=== PATIENT | female | born 1950 | race Caucasian/White ===

== ENCOUNTER 2018-03-29 10:22 | Emergency (ER) | payer MEDICARE, OTHER ==
[2018-03-29 10:33] VITALS: BP 149/90
--- NOTE | 2018-03-29 11:32 | UC ---
Complaint Female HPI - HPI Summary HPI Summary: 67 y/o female with no PMH, no medications presents with increased urinary urgency, ferquency, burning iwth urination, lower back pain. ever x 1 last night, 100.7. no chills. feeling well today, rare UTI's in past. recent travel to [place], was unable to seek care, symptoms x ~ 7-10 days - History Of Current Complaint Chief Complaint: UCGU Stated Complaint: PAIN WITH MICTURITION Time Seen by Provider: 03/29/18 11:16 Hx Obtained From: Patient ?: No Onset/Duration: Sudden Onset, Lasting Days Timing: Constant, Lasting Days Severity Initially: Mild Severity Currently: Moderate Pain Intensity: 5 Pain Scale Used: 0-10 Numeric - Allergies/Home Medications Allergies/Adverse Reactions: Allergies Allergy/AdvReac Type Severity Reaction Status Date / Time Penicillins Allergy Rash Verified 03/29/18 10:34 PMH/Surg Hx/FS Hx/Imm Hx Previously Healthy: Yes - Surgical History Surgical History: None - Social History Alcohol Use: None Substance Use Type: None Smoking Status (MU): Never Smoked Tobacco Review of Systems All Other Systems Reviewed And Are Negative: Yes Constitutional: Positive: Fever - 100.7 Genitourinary: Positive: Dysuria, Frequency, Urgency Is Patient Immunocompromised?: No Physical Exam Triage Information Reviewed: Yes Appearance: Well-Appearing, No Pain Distress, Well-Nourished Vital Signs: Initial Vital Signs Temp 96.5 F 03/29/18 10:29 Pulse 114 03/29/18 10:29 Resp 20 03/29/18 10:29 BP 149/90 03/29/18 10:29 Pulse Ox 100 03/29/18 10:29 Vital Signs Reviewed: Yes Eyes: Positive: Conjunctiva Clear Abdomen Description: Positive: Nontender, No Organomegaly, Soft. Negative: CVA Tenderness (R), CVA Tenderness (L) Skin Exam: Normal Complaint Female Dx - Course Course Of Treatment: UA + for UTI, pyridium, ABX, go to ER with increased symptoms - Differential Dx/Diagnosis Differential Diagnosis/HQI/PQRI: Appendicitis, Ovarian Cyst, Ureteral Stone, Urinary Tract Infection Provider Diagnoses: UTI, uncomplicated Discharge - Sign-Out/Discharge Documenting (check all that apply): Patient Departure All imaging exams completed and their final reports reviewed: No Studies - Discharge Plan Condition: Good Disposition: HOME Prescriptions: Phenazopyridine TAB* [Pyridium 100 mg TAB*] 100 mg PO BID #6 tab Sulfamethox/Trimethoprim DS* [Bactrim DS 800/160 TAB*] 1 tab PO BID #10 tab Patient Education Materials: Urinary Tract Infection in Women (DC) Referrals: Danial Miranda MD [Primary Care Provider] - Additional Instructions: - Increase fluid intake - antibiotics as prescribed - Pryidium for urinary symptoms - Go to ER with fever > 101, increased back pain, chills - Billing Disposition and Condition Condition: GOOD Disposition: Home
--- NOTE | 2018-03-31 18:44 | UC ---
- Progress Note Progress Note: 03/31/2018 Urine culture positive for E.Coli. Pt Rx Bactrim PO which is sensitive No change. Angelina Gaines PA-C Discharge - Sign-Out/Discharge Documenting (check all that apply): Patient Departure - D/C home All imaging exams completed and their final reports reviewed: No Studies - Discharge Plan Condition: Good Disposition: HOME Prescriptions: Phenazopyridine TAB* [Pyridium 100 mg TAB*] 100 mg PO BID #6 tab Sulfamethox/Trimethoprim DS* [Bactrim DS 800/160 TAB*] 1 tab PO BID #10 tab Patient Education Materials: Urinary Tract Infection in Women (DC) Referrals: Danial Miranda MD [Primary Care Provider] - Additional Instructions: - Increase fluid intake - antibiotics as prescribed - Pryidium for urinary symptoms - Go to ER with fever > 101, increased back pain, chills - Billing Disposition and Condition Condition: GOOD Disposition: Home
== END 2018-03-29 11:45 | disposition home or self-care (01) ==
LOC: UCEAST 10:22
DX: N39.0 Urinary tract infection, site not specified (principal); Z88.0 Allergy status to penicillin
CPT/HCPCS: 81003; 87077; 87086; 87186; 99212; G0463

== ENCOUNTER 2018-03-29 23:13 | Inpatient (IN) | payer MEDICARE, OTHER ==
[2018-03-30] MEDS ORDERED: NS 0.9% 1000 ML*IV.FLUID IV ONE (00:49)
[2018-03-30] MEDS ORDERED: Levofloxacin 750 MG IVPREMIX(* 750 MG/150 ML BAG IVPB ONE (00:50)
--- NOTE | 2018-03-30 00:59 | ED ---
GI/ HPI - HPI Summary HPI Summary: Pt is a 67 year old F presenting to the ED with a chief complaint of urogenital symptoms. She was dxed with a UTI, sx onset about 1wk ago. Pt reports back pain bilaterally described as throbbing as well as mild nausea. Pt denies chills until tonight, also denies vomiting. Urine is red due to pyridium, and states her temp was 100.7 yesterday. - History of Current Complaint Chief Complaint: EDUrogenitalProblems Time Seen by Provider: 03/30/18 00:09 Stated Complaint: FEVER/SHAKES Hx Obtained From: Patient Onset/Duration: Started Hours Ago, Still Present Timing: Constant Severity: Moderate Current Severity: Moderate Pain Intensity: 3 Location of Pain: Other - back bilateral Pain Characteristics: Other: - throbbing Associated Signs and Symptoms: Positive: Back Pain, Nausea, Dysuria, Chills, UTI Symptoms. Negative: Vomiting - Allergy/Home Medications Allergies/Adverse Reactions: Allergies Allergy/AdvReac Type Severity Reaction Status Date / Time Penicillins Allergy Rash Verified 03/29/18 23:34 PMH/Surg Hx/FS Hx/Imm Hx Previously Healthy: Yes Endocrine/Hematology History: Denies: Hx Diabetes Cardiovascular History: Denies: Hx Hypertension Musculoskeletal History: Denies: Hx Osteoporosis - Cancer History Hx Chemotherapy: No Hx Radiation Therapy: No Infectious Disease History: No Infectious Disease History: Reports: Traveled Outside the [place] in Last 30 Days - [place] - Family History Known Family History: Negative: Renal Disease - Social History Alcohol Use: Weekly Substance Use Type: Reports: None Smoking Status (MU): Never Smoked Tobacco Review of Systems Positive: Chills. Negative: Fever Positive: Nausea. Negative: Vomiting Positive: dysuria, frequency, urgency Positive: Myalgia - back pain All Other Systems Reviewed And Are Negative: Yes Physical Exam - Summary Physical Exam Summary: VITAL SIGNS: Reviewed. GENERAL: Patient is a well-developed and nourished female who is lying comfortable in the stretcher. Patient is not in any acute respiratory distress. HEAD AND FACE: No signs of trauma. No ecchymosis, hematomas or skull depressions. No sinus tenderness. EYES: PERRLA, EOMI x 2, No injected conjunctiva, no nystagmus. EARS: Hearing grossly intact. Ear canals and tympanic membranes are within normal limits. MOUTH: Oropharynx within normal limits. NECK: Supple, trachea is midline, no adenopathy, no JVD, no carotid bruit, no c- spine tenderness, neck with full ROM. CHEST: Symmetric, no tenderness at palpation LUNGS: Clear to auscultation bilaterally. No wheezing or crackles. CVS: Regular rate and rhythm, S1 and S2 present, no murmurs or gallops appreciated. ABDOMEN: Soft, No signs of distention. No rebound no guarding, and no masses palpated. Bowel sounds are normal. Right CVA tenderness. EXTREMITIES: FROM in all major joints, no edema, no cyanosis or clubbing. NEURO: Alert and oriented x 3. No acute neurological deficits. Speech is normal and follows commands. SKIN: Dry and warm Triage Information Reviewed: Yes Vital Signs On Initial Exam: Initial Vitals Temp Pulse Resp BP Pulse Ox 98.8 F 104 16 113/75 94 03/29/18 23:25 03/29/18 23:25 03/29/18 23:25 03/29/18 23:25 03/29/18 23:25 Vital Signs Reviewed: Yes Diagnostics - Vital Signs Vital Signs Temp Pulse Resp BP Pulse Ox 03/29/18 23:25 98.8 F 104 16 113/75 94 - Laboratory Result Diagrams: 04/01/18 06:58 04/01/18 06:58 Lab Statement: Any lab studies that have been ordered have been reviewed, and results considered in the medical decision making process. - CT ABD/PELV CT CT Interpretation Completed By: Radiologist Summary of CT Findings: There is mild right hydronephrosis and right hydroureter with right perinephric fat stranding suspicious for residual obstructive arthropathy but no visible obstructing calculus. Cannot exclude a recently passed calculus that is no longer present. ED physician has reviewed this report. GIGU Course/Dx - Course Course Of Treatment: Pt is a 67 y/o F presenting to the ED with UTI sx onset about 1 wk ago. Pt states she has chills and her instructions from urgent care said to come to the ED with any chills. Pt reports back pain and mild nausea. Pt denies vomiting. - Diagnoses Provider Diagnoses: UTI (urinary tract infection) Discharge - Sign-Out/Discharge Documenting (check all that apply): Patient Departure - Discharge Plan Condition: Stable Disposition: HOME - Billing Disposition and Condition Condition: STABLE Disposition: Home - Attestation Statements Document Initiated by Dahianaibe: Yes Documenting Scribe: Isamar Gates Provider For Whom Alvino is Documenting (Include Credential): Thomas Gallardo MD. Scribe Attestation: IIsamar, scribed for Thomas Gallardo MD. on 04/10/18 at 0611. Scribe Documentation Reviewed: Yes Provider Attestation: The documentation as recorded by the dahianaibe, Isamar Gates accurately reflects the service I personally performed and the decisions made by me, Thomas Gallardo MD. Consult Consult: [phone] - Paged the hospitalist. [phone] - Spoke with hospitalist about the pt's condition for admission later in the morning. Pt will be admitted.
[2018-03-30 01:20] LABS: ABS Basophils 0 10^3/ul (0-0.2); ABS Eosinophils 0 10^3/ul (0-0.6); ABS Lymphocytes 0.4 10^3/ul (1.0-4.8); ABS Monocytes 0.3 10^3/ul (0-0.8); ABS Neutrophils 6.5 10^3/ul (1.5-7.7); ABS Nucleated RBC 0 10^3/ul; Eosinophil % 0.2 % (0-6); Hematocrit 35 % (35-47); Hemoglobin 11.5 g/dl (12.0-16.0); Lymphocyte % 5.3 % (25-47); Mean Corpuscular HGB Conc 33 g/dl (31-36); Mean Corpuscular Hemoglobin 28 pg (27-31); Mean Corpuscular Volume 84 fL (80-97); Mean Platelet Volume 7.8 fL (7.4-10.4); Nucleated Red Blood Cells % 0; Platelet Count 247 10^3/ul (150-450); Red Blood Count 4.18 10^6/ul (4.00-5.40); Red Cell Distribution Width 18 % (10.5-15); White Blood Count 7.2 10^3/ul (3.5-10.8)
[2018-03-30 01:36] LABS: EGFR Non-African American 44.4 (>60)
[2018-03-30] MEDS ORDERED: Potassium Chloride LIQUID* 20 MEQ PACKET PO ONE (01:49)
[2018-03-30 02:26] LABS: Urine Appearance Cloudy; Urine Blood 1+ (Negative); Urine Color Amber; Urine Ketones Negative (Negative); Urine Protein 2+(100 mg/dL) (Negative); Urine Red Blood Cell 2+(6-10/hpf) (Absent); Urine Specific Gravity 1.019 (1.010-1.030); Urine Urobilinogen Positive (Negative); Urine White Blood Cell 3+(>20/hpf) (Absent)
[2018-03-30] MEDS ORDERED: Ondansetron INJ* 2 MG/ML VIAL IV PRN ×2 (04:40→04:45)
[2018-03-30] MEDS ORDERED: Potassium Chlor TAB* 20 MEQ TAB.ER PO ONE (04:43)
[2018-03-30] MEDS ORDERED: Ketorolac INJ* 30 MG/ML 1 ML VIAL IV PUSH PRN (05:51)
[2018-03-30] MEDS ORDERED: Morphine VIAL* 4 MG/ML VIAL (1 ml vial) IV SCH (06:00)
--- NOTE | 2018-03-30 06:10 | ADMNOTE ---
Subjective Date of Service: 03/30/18 Interval History: code status full this is an admission h/p hpi 67 yr old wf with no sig phx presented to er with chills sweats r flank pain for 3 days. pt felt that she might have uti since 03/24 when she was on vacation in [place]---> did not get any abx except drinking a lot of crainberry juice. she came back and had to go to [facility] for business and never got this check out. pt had intermittant r flank throbbing pain for the past three days, 4/10 decreased with tylenol but nothing makes it worse. went to urgent this am and was d/cd with bactrim ---> started to have chills sweats still this afternoon ---> came in fo reval initial wbc wnl but ct of abd/pelvis showed mild r hydroureterer/ hydronephrosis with fat stranding. got levauqin form er phx depression pshx none social hx no cig two glasses of wine on weekends only no ivda fhx denied any hn/dm/cva/cad Review of Systems - Measurements Intake and Output: Intake and Output Last 24 Hours 03/27/18 03/28/18 03/29/18 03/30/18 06:59 06:59 06:59 06:59 Weight 190 lb - Review of Systems General Comments: pertinent as per hpi Objective Active Medications: Acetaminophen (Tylenol Tab*) 650 mg PO Q4H PRN PRN Reason: FEVER/PAIN Sodium Chloride (Ns 0.9% 1000 Ml*) 1,000 mls @ 125 mls/hr IV PER RATE MICKIE Levofloxacin/Dextrose (Levaquin 750 Mg Ivpremix(*)) 750 mg in 150 mls @ 100 mls /hr IVPB Q24H MICKIE Ketorolac Tromethamine (Toradol Inj*) 30 mg IV PUSH Q6H PRN PRN Reason: PAIN Morphine Sulfate (Morphine Inj ((Syringe))*) 1 mg IV Q4HR MICKIE Ondansetron HCl (Zofran Inj*) 4 mg IV Q4H PRN PRN Reason: NAUSEA/VOMITING Ondansetron HCl (Zofran Inj*) 4 mg IV Q6H PRN PRN Reason: NAUSEA Senna (Senokot Tab*) 1 tab PO BID MICKIE Sertraline HCl (Zoloft*) 100 mg PO DAILY [facility] Vital Signs - 8 hr 03/29/18 23:25 Temperature 98.8 F Pulse Rate 104 Respiratory 16 Rate Blood Pressure 113/75 (mmHg) O2 Sat by Pulse 94 Oximetry Oxygen Devices in Use Now: None Appearance: nad Eyes: No Scleral Icterus, PERRLA Ears/Nose/Mouth/Throat: NL Teeth, Lips, Gums, Clear Oropharnyx, Mucous Membranes Moist Neck: NL Appearance and Movements; NL JVP, Trachea Midline, No Thyroid Enlargement, Masses Respiratory: Symmetrical Chest Expansion and Respiratory Effort, Clear to Auscultation Cardiovascular: NL Sounds; No Murmurs; No JVD, RRR Abdominal: NL Sounds; No Tenderness; No Distention, - - + r cva tenderness Extremities: No Edema, No Clubbing, Cyanosis Skin: No Rash or Ulcers, No Nodules or Sclerosis Neurological: Alert and Oriented x 3, NL Sensation, NL Gait, NL Muscle Strength and Tone Result Diagrams: 03/30/18 06:16 03/30/18 06:16 Assess/Plan/Problems-Billing Assessment: this is a 67 yr old wf with no sig phx presented for worsening r flank pain + fever to 100.7 chills, sweating for three days. she had uti symptoms since 03/24 but did not seek medical attention until today to urgent ---> went home with bactrim but started to have chills despite of abx ct showed r mild hydroureter/ hydronephrosis but no stone. pt got levaquin from er - Patient Problems (1) Hydroureter, right Current Visit: Yes Status: Acute Code(s): N13.4 - HYDROURETER SNOMED Code( s): 64694316 Comment: yisel called in for this am npo for now while waiting gu eval (2) Hydronephrosis Current Visit: Yes Status: Acute Code(s): N13.30 - UNSPECIFIED HYDRONEPHROSIS SNOMED Code(s): 81619647 Comment: yisel eval in am npo for now (3) UTI (urinary tract infection) Current Visit: Yes Status: Acute Comment: levaquin while waiting for urine cx (4) Flank pain Current Visit: Yes Status: Acute Code(s): R10.9 - UNSPECIFIED ABDOMINAL PAIN SNOMED Code(s): 976553491 Comment: very mild pain toradol prn for mild to mod morphine 1 mg prn for severe pain (5) Depression Current Visit: Yes Status: Acute Code(s): F32.9 - MAJOR DEPRESSIVE DISORDER , SINGLE EPISODE, UNSPECIFIED SNOMED Code(s): 77898694 Comment: stable continue current mgt
[2018-03-30] MEDS: NS 0.9% 1000 ML* 1,000 ML IV SCH ×3 (06:24→22:32)
[2018-03-30] MEDS: Sertraline* 100 MG TAB PO SCH (07:51)
[2018-03-30] MEDS: Senna TAB PO SCH ×2 (07:51→20:53)
[2018-03-30 07:59] LABS: ABS Basophils 0 10^3/ul (0-0.2); ABS Eosinophils 0 10^3/ul (0-0.6); ABS Lymphocytes 0.7 10^3/ul (1.0-4.8); ABS Monocytes 0.4 10^3/ul (0-0.8); ABS Neutrophils 7.6 10^3/ul (1.5-7.7); ABS Nucleated RBC 0 10^3/ul; Eosinophil % 0 % (0-6); Hematocrit 35 % (35-47); Hemoglobin 11.5 g/dl (12.0-16.0); Lymphocyte % 8.2 % (25-47); Mean Corpuscular HGB Conc 33 g/dl (31-36); Mean Corpuscular Hemoglobin 28 pg (27-31); Mean Corpuscular Volume 85 fL (80-97); Mean Platelet Volume 8.2 fL (7.4-10.4); Nucleated Red Blood Cells % 0.1; Platelet Count 256 10^3/ul (150-450); Red Blood Count 4.14 10^6/ul (4.00-5.40); Red Cell Distribution Width 18 % (10.5-15); White Blood Count 8.8 10^3/ul (3.5-10.8)
[2018-03-30] MEDS ORDERED: Morphine INJ* 2 MG/ML 1 ML SYRINGE (TWO MG - NEW SYRINGE VERSION) IV PRN (07:59)
[2018-03-30 08:09] LABS: EGFR Non-African American 57.3 (>60)
[2018-03-30] MEDS: cefTRIAXone(*) 1 GM in NS 0.9% 50 ML* 50 ML IVPB SCH (08:10)
[2018-03-30] MEDS ORDERED: Pneumococcal *Vac Polyvalent 0.5 ML VIAL IM ONE (09:00)
[2018-03-30] MEDS ORDERED: Gentamicin ADULT per pharmacy 1 NOTE MISC FOLLOW UP PRN (12:41)
[2018-03-30] MEDS ORDERED: Gentamicin ADULT (*) 160 MG in NS 0.9% 100 ML* 100 ML IVPB ONE (13:00)
--- NOTE | 2018-03-30 13:02 | PN ---
Hospitalist Progress Note Date of Service: 03/30/18 HOSPITALIST ADDENDUM Mrs Meyer is a 67yo F with [facility] who presented to ED with c/o right flank pain and chills, found to have pyelonephritis. CT showed right perinephric stranding, with mild hydronephrosis and hydroureter. Urology consult requested - recommended adding gentamycin as she's spiking fevers and to repeat US in AM. Continue IVF, antibiotics, and monitor.
[2018-03-30] MEDS: Acetaminophen TAB* 325 MG PO PRN ×2 (15:02→22:27)
[2018-03-30] MEDS ORDERED: Melatonin 3 MG TAB PO PRN (15:43)
--- NOTE | 2018-03-30 20:43 | CONS ---
CC: Dr. Mackenzie Parsons; Dr. Danial Miranda MD * UROLOGY CONSULTATION: DATE OF CONSULT: 03/30/18 REQUESTING PHYSICIAN: Dr. Mackenzie Prasons. DIAGNOSES: 1. Right flank pain. 2. Right hydronephrosis. 3. Probable right pyelonephritis. HISTORY OF PRESENT ILLNESS: Elisa Meyer is a 67-year-old lady who was admitted with a four to five day history of increasing urinary frequency and dysuria. This has been going on for several days and progressively getting worse. She denies any fever or chills. Over the last few days, she has started having some increasing flank pain mostly on the right side, but also slightly on the left side. She denies any gross hematuria. There is no prior history of urolithiasis. She does not have any history of recurrent urinary tract infections. There is no history of diabetes mellitus or an other major systemic illness. MEDICATIONS ON ADMISSION: Zoloft 100 mg daily. ALLERGIES: PENICILLIN (not sure of reaction) PHYSICAL EXAM: Reveals a pleasant, healthy-appearing, middle-aged lady. Blood pressure is 152/78, the latest temperature at 11:18 was 102.4, oxygen saturation is 95% on room air, heart rate 85 per minute and regular. Cardiovascular Exam: Regular rate and rhythm. S1 and S2. Lungs are clear bilaterally. Abdomen is soft without any palpable masses. There is no evidence of distended bladder. There is mild right flank tenderness. DIAGNOSTIC STUDIES/LAB DATA: Review of labs reveals a white count of 8.8, hemoglobin and hematocrit of 11.5 and 35 with a platelet count of 256. Review of chemistry reveals a BUN and creatinine of 20 and 0.97 with a glucose of 122. Urinalysis showed 6 to 10 red cells per high power field, more than 20 white blood cells per high power field and 1+ bacteria. Urine culture is pending at the time of this dictation. She had a CT scan done on admission, which revealed mild right hydronephrosis and hydroureter with no evidence of any obstructing calculus noted. IMPRESSION: My initial recommendation had been to suggest an ultrasound in 24 hours to see for resolution of the hydronephrosis in case it was due a recently passed calculus, however, she had an ultrasound done about an hour prior to my evaluating her and this shows persistent mild right hydronephrosis, although right ureteral jet is definitely noted. I reviewed the imaging studies personally and discussed the situation in detail with Ms. Meyer. All of this could be explained by pyelonephritis and I also explained the possibility of possibly having passed a stone in the last day or two leading to persistent residual hydronephrosis. The clinical finding certainly is consistent with an inflammatory process, although with persistent hydronephrosis, it would be important to rule out other noninflammatory causes also and depending on clinical course, CT urogram may be appropriate if she continues to have flank pain and persistent hydronephrosis. I also discussed with her the possibility of requiring an endoscopic procedure consisting of cystoscopy and right retrograde pyelogram, possible urethroscopy and stent insertion. At this point, my recommendation would be continue intravenous antibiotics, intravenous hydration and as long as she is clinically stable to repeat an ultrasound in the morning again looking for resolution of the right hydronephrosis and for absence or presence of right ureteral jet. [id number]/[facility] #: [id number] MTDAnni
[2018-03-31] MEDS ORDERED: Zolpidem TAB* 5 MG PO ONE (00:24)
[2018-03-31] MEDS ORDERED: Levofloxacin 750 MG IVPREMIX(* 750 MG/150 ML BAG IVPB SCH (05:00)
[2018-03-31] MEDS ORDERED: Gentamicin ADULT (*) 120 MG in NS 0.9% 100 ML* 100 ML IVPB SCH (06:00)
[2018-03-31] MEDS: NS 0.9% 1000 ML* 1,000 ML IV SCH (07:11)
[2018-03-31] MEDS: Senna TAB PO SCH ×2 (07:17→22:03)
[2018-03-31] MEDS: Sertraline* 100 MG TAB PO SCH (07:17)
[2018-03-31 07:26] LABS: EGFR Non-African American 82.1 (>60)
[2018-03-31 07:50] LABS: Gentamicin Peak < 0.4 mcg/mL
[2018-03-31] MEDS: cefTRIAXone(*) 1 GM in NS 0.9% 50 ML* 50 ML IVPB SCH (07:51)
[2018-03-31 08:16] LABS: ABS Basophils 0 10^3/ul (0-0.2); ABS Eosinophils 0 10^3/ul (0-0.6); ABS Lymphocytes 0.8 10^3/ul (1.0-4.8); ABS Monocytes 0.9 10^3/ul (0-0.8); ABS Neutrophils 3.7 10^3/ul (1.5-7.7); ABS Nucleated RBC 0 10^3/ul; Eosinophil % 0.3 % (0-6); Hematocrit 33 % (35-47); Lymphocyte % 15.3 % (25-47); Mean Corpuscular HGB Conc 33 g/dl (31-36); Mean Corpuscular Hemoglobin 28 pg (27-31); Mean Corpuscular Volume 84 fL (80-97); Mean Platelet Volume 7.7 fL (7.4-10.4); Nucleated Red Blood Cells % 0.1; Platelet Count 221 10^3/ul (150-450); Red Blood Count 3.96 10^6/ul (4.00-5.40); Red Cell Distribution Width 18 % (10.5-15); White Blood Count 5.5 10^3/ul (3.5-10.8)
--- NOTE | 2018-03-31 11:11 | PN ---
Subjective Date of Service: 03/31/18 Interval History: HOSPITALIST PROGRESS NOTE Patient seen and examined at bedside. Care reviewed and d/w Zohreh Cárdenas RN. She feels improved this AM. Right flank pain is much improved and dysuria is minimal. Denies N/V, actually she's hungry and asking for food. Family History: Unchanged from Admission Social History: Unchanged from Admission Past Medical History: Unchanged from Admission Objective Active Medications: Acetaminophen (Tylenol Tab*) 650 mg PO Q4H PRN PRN Reason: FEVER/PAIN Last Admin: 03/30/18 22:27 Dose: 650 mg Ceftriaxone Sodium 1 gm/ (Sodium Chloride) 50 mls @ 200 mls/hr IVPB Q24H [facility] Last Admin: 03/31/18 07:51 Dose: 200 mls/hr Ketorolac Tromethamine (Toradol Inj*) 30 mg IV PUSH Q6H PRN PRN Reason: PAIN Melatonin (Melatonin) 3 mg PO BEDTIME PRN; Protocol PRN Reason: SLEEP Last Admin: 03/30/18 21:00 Dose: 3 mg Morphine Sulfate (Morphine Inj ((Syringe))*) 1 mg IV Q4HR PRN PRN Reason: PAIN Ondansetron HCl (Zofran Inj*) 4 mg IV Q6H PRN PRN Reason: NAUSEA Senna (Senokot Tab*) 1 tab PO BID [facility] Last Admin: 03/31/18 07:17 Dose: Not Given Sertraline HCl (Zoloft*) 100 mg PO DAILY [facility] Last Admin: 03/31/18 07:17 Dose: Not Given Vital Signs - 8 hr 03/31/18 03/31/18 03/31/18 05:51 07:07 07:19 Temperature 100.4 F 99.0 F Pulse Rate 77 72 Respiratory 17 16 16 Rate Blood Pressure 141/66 138/72 (mmHg) O2 Sat by Pulse 98 Oximetry 03/31/18 03/31/18 10:37 10:47 Temperature 99.8 F Pulse Rate 78 Respiratory 14 16 Rate Blood Pressure 165/72 148/72 (mmHg) O2 Sat by Pulse 97 Oximetry Oxygen Devices in Use Now: None Appearance: Pleasant lady lying in bed in NAD. Eyes: No Scleral Icterus Ears/Nose/Mouth/Throat: Mucous Membranes Moist Neck: Trachea Midline Respiratory: Symmetrical Chest Expansion and Respiratory Effort, Clear to Auscultation Cardiovascular: NL Sounds; No Murmurs; No JVD, RRR Abdominal: NL Sounds; No Tenderness; No Distention Neurological: Alert and Oriented x 3, NL Muscle Strength and Tone Result Diagrams: 03/31/18 08:02 03/31/18 06:39 Microbiology and Other Data: Microbiology 03/30/18 01:02 Aerobic Blood Culture - Preliminary Blood Venous No Growth Day 1 Anaerobic Blood Culture - Preliminary Escherichia Coli 03/30/18 01:02 Aerobic Blood Culture - Preliminary Blood Venous Anaerobic Blood Culture - Preliminary No Growth Day 1 Assess/Plan/Problems-Billing Assessment: Mrs Meyer is a 67 yo F with no significant PMH who presented to ED with c/o right flank pain and fever, found to have pyelonephritis. - Patient Problems (1) Sepsis Comment: - Presentation compatible with sepsis with fever and tachycardia. - Source is pyelonephritis. (2) Pyelonephritis Comment: - Improving. - Blood cultures showing gram negative septicemia - ID consult requested. - F/u renal ultrasound shows resolution of hydronephrosis/hydroureter and ureteral jet is present - d/w Urology - cystoscopy and stent not indicated. - Follow culture results. - Continue Ceftriaxone and gentamycin. (3) SHARIF (acute kidney injury) Comment: - Likely pre-renal in the setting of dehydration - resolved. (4) DVT prophylaxis Comment: - SQ heparin. (5) Depression Comment: - Continue Sertraline. (6) Full code status Status and Disposition: Inpatient for management of pyelonephritis.
--- NOTE | 2018-03-31 12:14 | CONS ---
DATE OF CONSULTATION: 03/31/2018. REQUESTING PHYSICIAN: Dr. Parsons. CONSULTING SERVICE: Infectious Disease. REASON FOR CONSULTATION: Pyelonephritis. IMPRESSION: 1. Right-sided pyelonephritis with resulting hydronephrosis and probably a past ureteral stone, due to E. coli; there is E. coli in one of four blood cultures bottles as well. 2. PENICILLIN ALLERGY, unknown reaction, tolerating cephalosporins well. 3. Obesity. 4. Depression. RECOMMENDATIONS: Continue Ceftriaxone, will stop Gentamicin. Plan on another at least 24 hours of IV antibiotics and if she continues to defervesce, then will switch to oral therapy once we have susceptibility data back, to complete a ten day course. HISTORY OF PRESENT ILLNESS: This 67-year-old woman who had about two or three weeks of worsening dysuria and right flank pain that developed while she was traveling in the and then while on a trip to [facility]. On the way back , she had very severe right flank pain, was seen at [facility] over the weekend, prescribed Bactrim, but developed rigors and high fever, so she came to the emergency room. One of four blood culture bottles ended up being positive for E. coli. Her initial C-reactive protein was 250. Urinalysis showed blood, nitrates, leukocyte esterase. CT scan showed mild right-sided hydronephrosis without a stone. She was seen by Dr. Grullon. Follow-up ultrasound showed resolution of the hydronephrosis. She had a low grade fever of 38 this morning and 39.3 overnight. She does not notice any chills or sweats this morning. Her appetite is okay. Her right flank pain is much improved. She has not has a urinary tract infection in the last couple of years. PAST MEDICAL HISTORY: Depression, obesity. MEDICATIONS: Gentamicin, Ceftriaxone, potassium, Senna, Sertaline. ALLERGIES: PENICILLIN, unknown reaction as a child. FAMILY HISTORY: No recurrent infections. 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 She has traveled to the . REVIEW OF SYSTEMS: All negative except as noted above in the history of present illness. PHYSICAL EXAM: General: She is awake and not in distress. Vital Signs: Temperature 37, heart rate 70, respiratory rate 16, blood pressure 140/72, oxygen saturation 98 percent on room air. Neurologic: She is oriented times three, follows all commands. HEENT: There is no conjunctival hemorrhage. Oropharynx without lesions. Neck: Supple without mass. Heart: Regular rate and rhythm without murmurs, rubs or gallops. Lungs: Clear to auscultation bilaterally. Abdomen: Soft, nontender, nondistended. There is right flank tenderness to palpation. There are bowel sounds presents. Skin: There is no rash or splinter hemorrhages. Musculoskeletal: There is no spine tenderness to palpable. LABORATORY DATA: White blood cell count 5, hemoglobin 11, platelets 221, creatinine 0.7. Please see impressions and recommendations as outlined above. Thank you for asking me to see Ms. Meyer in consultation. [id number]/[facility] #: [id number] CHASITY
[2018-03-31] MEDS: Heparin VIAL(*) 5000 UNITS/ML VIAL (FIVE THOUSAND) SUBCUT SCH ×2 (12:38→22:01)
[2018-03-31] MEDS: Acetaminophen TAB* 325 MG PO PRN (16:24)
[2018-03-31] MEDS ORDERED: Zolpidem TAB* 5 MG PO PRN (20:09)
[2018-04-01] MEDS ORDERED: Gentamicin Trough Level 1 NOTE MISC FOLLOW UP SCH (05:30)
[2018-04-01] MEDS: Heparin VIAL(*) 5000 UNITS/ML VIAL (FIVE THOUSAND) SUBCUT SCH ×3 (06:00→21:12)
[2018-04-01 07:24] LABS: ABS Basophils 0 10^3/ul (0-0.2); ABS Eosinophils 0 10^3/ul (0-0.6); ABS Lymphocytes 1.2 10^3/ul (1.0-4.8); ABS Monocytes 0.7 10^3/ul (0-0.8); ABS Neutrophils 2.5 10^3/ul (1.5-7.7); ABS Nucleated RBC 0 10^3/ul; Eosinophil % 0.8 % (0-6); Hematocrit 35 % (35-47); Hemoglobin 11.9 g/dl (12.0-16.0); Lymphocyte % 27.7 % (25-47); Mean Corpuscular HGB Conc 34 g/dl (31-36); Mean Corpuscular Hemoglobin 28 pg (27-31); Mean Corpuscular Volume 83 fL (80-97); Mean Platelet Volume 7.9 fL (7.4-10.4); Nucleated Red Blood Cells % 0.1; Platelet Count 263 10^3/ul (150-450); Red Cell Distribution Width 18 % (10.5-15); White Blood Count 4.4 10^3/ul (3.5-10.8)
[2018-04-01] MEDS ORDERED: Gentamicin PEAK LEVEL* 1 NOTE MISC FOLLOW UP SCH (07:30)
[2018-04-01 07:40] LABS: EGFR Non-African American 84.9 (>60)
[2018-04-01 07:41] LABS: EGFR Non-African American 83.5 (>60)
[2018-04-01] MEDS: cefTRIAXone(*) 1 GM in NS 0.9% 50 ML* 50 ML IVPB SCH (07:48)
[2018-04-01] MEDS: Senna TAB PO SCH ×2 (07:48→21:12)
[2018-04-01] MEDS: Sertraline* 100 MG TAB PO SCH (07:48)
--- NOTE | 2018-04-01 11:42 | PN ---
Subjective Date of Service: 04/01/18 Interval History: Patient examined at bedside. Plan reviewed with patient and JONNY Peters Reports she feels much better. Reports feeling mildly fatigued. Denies flank pain, urinary symptoms, or fever/chills. Tolerating PO food and fluids well. Denies n/v. Reports normal BM today. 12 point ROS completed and all negative. Family History: Unchanged from Admission Social History: Unchanged from Admission Past Medical History: Unchanged from Admission Objective Active Medications: Acetaminophen (Tylenol Tab*) 650 mg PO Q4H PRN PRN Reason: FEVER/PAIN Last Admin: 03/31/18 16:24 Dose: 650 mg Heparin Sodium (Porcine) (Heparin Vial(*)) 5,000 units SUBCUT Q8HR [facility] Last Admin: 04/01/18 06:00 Dose: 5,000 units Ceftriaxone Sodium 1 gm/ (Sodium Chloride) 50 mls @ 200 mls/hr IVPB Q24H [facility] Last Admin: 04/01/18 07:48 Dose: 200 mls/hr Melatonin (Melatonin) 3 mg PO BEDTIME PRN; Protocol PRN Reason: SLEEP Last Admin: 03/30/18 21:00 Dose: 3 mg Morphine Sulfate (Morphine Inj ((Syringe))*) 1 mg IV Q4HR PRN PRN Reason: PAIN Ondansetron HCl (Zofran Inj*) 4 mg IV Q6H PRN PRN Reason: NAUSEA Senna (Senokot Tab*) 1 tab PO BID [facility] Last Admin: 04/01/18 07:48 Dose: Not Given Sertraline HCl (Zoloft*) 100 mg PO DAILY [facility] Last Admin: 04/01/18 07:48 Dose: 100 mg Zolpidem Tartrate (Ambien Tab*) 5 mg PO BEDTIME PRN PRN Reason: INSOMNIA Last Admin: 03/31/18 22:01 Dose: 5 mg Vital Signs - 8 hr 04/01/18 04/01/18 04/01/18 07:14 08:00 10:53 Temperature 97.8 F 98.2 F Pulse Rate 79 71 Respiratory 18 16 18 Rate Blood Pressure 162/82 157/82 (mmHg) O2 Sat by Pulse 97 98 Oximetry Oxygen Devices in Use Now: None Appearance: Well appearing. Eyes: PERRLA Ears/Nose/Mouth/Throat: Clear Oropharnyx, Mucous Membranes Moist Neck: NL Appearance and Movements; NL JVP Respiratory: Symmetrical Chest Expansion and Respiratory Effort, Clear to Auscultation Cardiovascular: NL Sounds; No Murmurs; No JVD, RRR, No Edema Abdominal: NL Sounds; No Tenderness; No Distention, - - No CVA tenderness Extremities: No Edema, No Clubbing, Cyanosis Skin: No Rash or Ulcers Neurological: Alert and Oriented x 3 Nutrition: Taking PO's Result Diagrams: 04/01/18 06:58 04/01/18 06:58 Microbiology and Other Data: Microbiology 03/30/18 01:02 Aerobic Blood Culture - Preliminary Blood Venous No Growth Day 2 Anaerobic Blood Culture - Final Escherichia Coli 03/30/18 01:02 Aerobic Blood Culture - Final Blood Venous Escherichia Coli Anaerobic Blood Culture - Preliminary No Growth Day 2 Assess/Plan/Problems-Billing Assessment: Mrs Meyer is a 67 yo F with no significant PMH who presented to ED with c/o right flank pain and fever, found to have pyelonephritis. - Patient Problems (1) Sepsis Comment: - Upon admission presentation compatible with sepsis with fever and tachycardia , source is pyelonephritis, blood cultures reveal e coli - Sepsis improved. - Repeat blood cultures obtained today. - Awaiting negative blood cultures at which point we will switch to PO abx and discharge - Encouraged PO fluids. (2) Pyelonephritis Comment: - Improving. - Cystoscopy and stent not indicated. - Follow culture results as mentioned above - Continue Ceftriaxone (3) SHARIF (acute kidney injury) Comment: - Likely pre-renal in the setting of dehydration - resolved. (4) Hypertension Comment: - Noted to be midly hypertensive 03/31 and 04/01 with SBP between 138 to 162 - Patient has lower BPs prior with SBP in 80s and 100s - Asymptomatic - Will continue to monitor and reassess need for starting BP medication - Suspected BP is due to current state - Will encourage to discuss with PCP after discharge (5) Depression Comment: - Continue Sertraline. (6) DVT prophylaxis Comment: - SQ heparin. - Encouraged ambulation (7) Full code status Comment: - Full Code Status and Disposition: Inpatient for management of pyelonephritis. Attending: Mackenzie Albright
[2018-04-02] MEDS: Heparin VIAL(*) 5000 UNITS/ML VIAL (FIVE THOUSAND) SUBCUT SCH (06:38)
[2018-04-02] MEDS: cefTRIAXone(*) 1 GM in NS 0.9% 50 ML* 50 ML IVPB SCH (08:27)
[2018-04-02] MEDS: Senna TAB PO SCH (08:27)
[2018-04-02] MEDS: Sertraline* 100 MG TAB PO SCH (08:27)
[2018-04-02] MEDS ORDERED: Cephalexin CAP* 500 MG PO ONE (10:51)
[2018-04-02 11:42] VITALS: BP 161/80
--- NOTE | 2018-04-03 07:55 | DS ---
CC: Dr. Danial Miranda; Dr. Mckeon; Dr. Grullon.* DISCHARGE SUMMARY: DATE OF ADMISSION: 03/30/18 DATE OF DISCHARGE: 04/02/18 PRIMARY CARE PROVIDER: Dr. Danial Miranda. INFECTIOUS DISEASE SPECIALIST: Dr. Mckeon. CONSULTING UROLOGIST: Dr. Grullon. DISCHARGE DIAGNOSES: 1. Sepsis, present on admission. 2. E. Coli, septicemia. 3. Pyelonephritis. 4. Acute kidney injury, prerenal in the setting of dehydration. SECONDARY DIAGNOSIS: Depression. MEDICATIONS LIST: 1. Sertraline 100 mg p.o. daily. New Medications: 1. Acetaminophen 650 mg p.o. q.4 hours p.r.n. pain or fever. 2. Calcium plus vitamin D one tablet p.o. daily. 3. Cephalexin 500 mg p.o. t.i.d. for 10 more days. 4. Sporidium 100 mg p.o. b.i.d. HOSPITAL COURSE: Mrs. Meyer is a 67-year-old lady with the past medical history as stated above that presented to the emergency room with complaints of chills, sweats, right flank pain, urinary complaints. For more details about her presentation, I refer you to her history and physical. The patient's workup in the emergency room was significant for abnormal urinalysis and CT of the abdomen and pelvis mild hydronephrosis and right hydroureter with right perinephric fat stranding suspicious for residual obstructive uropathy, but no visible obstructing calculus. Cannot exclude a recently passed calculus that is no longer present. The patient was started on antibiotics and seen in consultation by Urology (Dr. Grullon). His recommendation was for a repeat ultrasound and if persistent hydronephrosis to consider cystoscopy with stent insertion. He was in agreement with antibiotic therapy. Followup ultrasound showed interval resolution of the mild right-sided hydronephrosis and bilateral ureteral jets were identified. The patient's blood cultures grew E. Coli that was resistant to ampicillin and tetracycline. The patient was seen in consultation by infectious disease (Dr. Mckeon and he agreed with the management with ceftriaxone and his recommendation was to change to p.o. cephalexin if followup cultures were negative. On 04/02/18, her repeat blood cultures showed no growth. The patient was afebrile with improvement of her symptoms and she was felt to be stable for discharge. Of note is the fact that the patient has had some hypertension while in the hospital, but she does not carry a diagnosis of hypertension. I advised her to measure her blood pressure at home and take her numbers to her primary care provider as I believe just the measurements here in the hospital in the setting of pain and infection are not enough to say that she is hypertensive and requires medication. She will follow up with Dr. Miranda in 4 to 7 days and she will also have follow up with Dr. Mckeon in 1 to 2 weeks. Depending on how she does after treatment she may also need to follow up with Dr. Grullon. PHYSICAL EXAMINATION: Vital Signs: Temperature is 97.8, heart rate is 74, respiratory rate is 16, oxygen saturation is 96% on room air, and blood pressure is 161/80. General: The patient is a pleasant lady, sitting up in the chair, in no acute distress. CVS: Normal S1 and S2. Regular, rate, and rhythm. Chest: Breath sounds present bilaterally. No added sounds. Abdomen is soft and nontender. Bowel sounds are present. Extremities: No edema. Neuro: She is alert, awake, and oriented x3. Able to move all 4 extremities. DIET: Regular diet. ACTIVITY: As tolerated. DISPOSITION: To home. STATUS WHILE IN THE HOSPITAL: Inpatient. Please keep in mind this is a summarized version of this patient's hospital stay. If you need more information , please fell free to call me at [phone] or please obtain the full medical records. TIME SPENT: Approximately 45 minutes spent to complete this discharge. [id number]/CPS #: [id number] [facility]AS[facility]
== END 2018-04-02 14:00 | disposition home or self-care (01) | DRG 872 ==
LOC: ED 23:13 → MED 03-30 04:39
PROVIDERS: ADMIT Internal Medicine; ATTEND Internal Medicine
DX: A41.51 Sepsis due to Escherichia coli [E. coli] (principal); N17.9 Acute kidney failure, unspecified; N13.6 Pyonephrosis; N39.0 Urinary tract infection, site not specified; F32.9 Major depressive disorder, single episode, unspecified; E86.0 Dehydration; Z16.11 Resistance to penicillins; Z16.29 Resistance to other single specified antibiotic; E66.9 Obesity, unspecified; I10 Essential (primary) hypertension; Z88.0 Allergy status to penicillin; Z72.89 Other problems related to lifestyle; Z68.32 Body mass index [BMI] 32.0-32.9, adult
CPT/HCPCS: 36415; 74176; 76775; 80048; 80053; 80170; 81003; 81015; 82565; 83605; 83735; 84100; 84520; 85025; 85610; 85730; 86140; 87040; 87077; 87086; 87186; 87205; 90732; 99212; 99284; A9270-GY; G0463; J0696; J1580; J1644; J2270